=== PATIENT | male | born 1990 | race African-American/Black ===

== ENCOUNTER 2020-03-27 14:51 | Emergency (ER) | payer OTHER ==
[~2020-03-27] VITALS: Ht 175.3 cm; Wt 67.6 kg
[2020-03-27 15:02] VITALS: BP 127/73
--- NOTE | 2020-03-27 15:09 | Emergency Room Report ---
History of Present Illness General Chief Complaint: Skin Rash/Abscess Source: Patient Present Illness HPI 29-year-old male with no symptom past medical history here complaining of a boil on right sided inner thigh/groin x2 days. Patient reports that he has been cancer frequently and he only takes oral antibiotics for it to drain on his own. Rates the pain 3 out of 10 at this time. Denies any fever and chills. Denies penile discharge urinary frequency and urgency. Has not taken medication for symptom relief. Denies chest pain, shortness of breath, headache and dizziness. Has not taken medication for symptom relief Allergies: Coded Allergies: No Known Allergies (Unverified , 03/27/20) COVID-19 Screening Contact w/high risk pt: No Experienced COVID-19 symptoms?: No COVID-19 Testing performed HOUSEKEEPING ASSOCIATE: No Patient History Past Medical History: see triage record Past Surgical History: none Pertinent Family History: none Immunizations: UTD Reviewed Nursing Documentation: PMH: Agreed; PSxH: Agreed Nursing Documentation-PMH Past Medical History: No Stated History Review of Systems All Other Systems: negative except mentioned in HPI Physical Exam Vital Signs Date Time Temp Pulse Resp B/P (MAP) Pulse Ox O2 Delivery O2 Flow Rate FiO2 03/27/20 14:53 99.0 84 19 127/73 (91) 99 Room Air Sp02 EP Interpretation: reviewed, normal General Appearance: no apparent distress, alert, GCS 15, non-toxic Head: normocephalic, atraumatic Eyes: bilateral eye normal inspection, bilateral eye PERRL ENT: hearing grossly normal, normal pharynx, no angioedema, normal voice Neck: full range of motion, supple/symm/no masses Respiratory: chest non-tender, lungs clear, normal breath sounds, speaking full sentences Cardiovascular #1: regular rate, rhythm, no edema Gastrointestinal: normal bowel sounds, non tender, soft, non-distended, no guarding, no rebound Genitourinary: no CVA tenderness, penis normal, scrotum normal Musculoskeletal: back normal, normal range of motion, gait/station normal, non- tender Neurologic: alert, motor strength/tone normal, oriented x3, sensory intact, responsive, speech normal Psychiatric: judgement/insight normal, memory normal, mood/affect normal, no suicidal/homicidal ideation Skin: other - cyst right inguinal Lymphatic: no adenopathy Medical Decision Making PA Attestation All diagnosis and treatment plans were discussed and reviewed by my supervising physician Dr. Polanco Diagnostic Impression: Primary Impression: Groin cyst ER Course 29-year-old male with no symptom past medical history here complaining of a boil on right sided inner thigh/groin x2 days. Patient reports that he has been cancer frequently and he only takes oral antibiotics for it to drain on his own. Rates the pain 3 out of 10 at this time. Denies any fever and chills. Denies penile discharge urinary frequency and urgency. Has not taken medication for symptom relief. Denies chest pain, shortness of breath, headache and dizziness. Has not taken medication for symptom relief Ddx considered but are not limited to : Cellulitis,cyst, superficial infection, abscess Vital signs: are WNL, pt. is afebrile H&PE are most consistent with:groin cyst ORDERS: bactrim DS, Keflex, Ibuprofen ED INTERVENTIONS: toradol DISCHARGE: At this time pt. is stable for d/c to home. Will provide printed patient care instructions, and any necessary prescriptions. Care plan and follow up instructions have been discussed with the patient prior to discharge. Take medication as directed, follow-up with your primary care provider, if worsening symptoms increased pain return to emergency room. Also follow-up with your urologist scrotal ultrasound may be needed. Last Vital Signs Date Time Temp Pulse Resp B/P (MAP) Pulse Ox O2 Delivery O2 Flow Rate FiO2 03/27/20 15:02 99.0 76 19 127/73 99 Room Air Disposition: HOME, SELF-CARE Condition: Stable Scripts Ibuprofen (Ibu) 800 Mg Tablet 800 MG PO TID, #30 TAB Prov: Montse Henry 03/27/20 Trimethoprim/Sulfamethoxazole (Bactrim Ds Tablet) 1 Each Tablet 1 TAB ORAL TWICE A DAY for 7 Days, #14 TAB Prov: Montse Henry 03/27/20 Cephalexin* (KEFLEX*) 500 Mg Capsule 500 MG ORAL EVERY 6 HOURS for 7 Days, #28 CAP Prov: Montse Henry 03/27/20 Patient Instructions: Abscess Additional Instructions: Take medication as directed, follow-up with your primary care provider, if worsening symptoms return to the emergency room Montse Henry Mar 27, 2020 15:09
[2020-03-27] MEDS ORDERED: IBU800 MG PO (15:10)
[2020-03-27] MEDS ORDERED: CEPHALEXIN500 MG ORAL (15:10)
[2020-03-27] MEDS ORDERED: BACTRIM-DS1 EA ORAL (15:10)
[2020-03-27 15:16] VITALS: BP 125/76
== END 2020-03-27 15:15 | disposition home or self-care (01) ==
LOC: EMR 15:10
DX: L72.8 Other follicular cysts of the skin and subcutaneous tissue (principal)
CPT/HCPCS: 99282

== ENCOUNTER 2020-04-22 12:51 | Emergency (ER) | payer OTHER ==
[~2020-04-22] VITALS: Ht 172.7 cm; Wt 65.8 kg
[~2020-04-22 12:51] MED LIST: BACTRIM-DS1 EA ORAL; CEPHALEXIN500 MG ORAL; IBU800 MG PO
--- NOTE | 2020-04-22 13:10 | NUR ---
ED Nurse Note: Patient c/o vomiting started x 45 min; patient is diaphoretic, hyperventilating, continuous having vomiting in waiting room. Assisted patient in wheelchair to room. Emesis bag provided. Pt's is A&Ox4, VSS, on RA, afebrile on triage. Placed on bed and gown; hooked to vehicle monitor technician.
--- NOTE | 2020-04-22 13:21 | Emergency Room Report ---
History of Present Illness General Chief Complaint: Vomiting Source: Patient Present Illness HPI 29-year-old male presents to the emergency department complaining of vomiting since this morning upon awakening as well as diarrhea x1 day. Patient reports 8 out of 10 in severity epigastric abdominal pain and sweating. Patient denies specific fevers or chills. Patient denies blood in the vomit or stool. He reports history of gastritis in the past with similar presentation. Patient does report that he smokes marijuana and last 72 hours but states that he smokes every day and never has any reaction similar to this. She denies taking any other medications denies alcohol use. No other aggravating or relieving factors. Allergies: Coded Allergies: No Known Allergies (Unverified , 03/27/20) COVID-19 Screening Contact w/high risk pt: No Experienced COVID-19 symptoms?: No Patient History Past Medical History: see triage record Past Surgical History: none Pertinent Family History: none Social History: Reports: drug use - THC Reviewed Nursing Documentation: PMH: Agreed; PSxH: Agreed Nursing Documentation-PMH Past Medical History: No History, Except For Hx Gastrointestinal Problems: Yes - Gastritis Review of Systems All Other Systems: negative except mentioned in HPI Physical Exam Sp02 EP Interpretation: reviewed, normal General Appearance: alert, GCS 15, non-toxic, mild distress Head: normocephalic, atraumatic Eyes: bilateral eye normal inspection, bilateral eye PERRL ENT: hearing grossly normal, normal voice Neck: full range of motion Respiratory: lungs clear, normal breath sounds, speaking full sentences Cardiovascular #1: regular rate, rhythm Gastrointestinal: normal bowel sounds, soft, non-distended, no guarding, tenderness - epigastric ttp. Rectal: deferred Genitourinary: normal inspection, no CVA tenderness Musculoskeletal: normal range of motion, gait/station normal, non-tender Neurologic: alert, motor strength/tone normal, oriented x3, sensory intact, responsive, speech normal Psychiatric: judgement/insight normal Skin: no rash, normal color, diaphoresis Medical Decision Making PA Attestation Dr. Christiansen Is my supervising Physician whom patient management has been discussed with. Diagnostic Impression: Primary Impression: Hyperemesis Additional Impression: Cannabinoid hyperemesis syndrome ER Course 29-year-old male presents to the emergency department complaining of vomiting since this morning upon awakening as well as diarrhea x1 day. Patient reports 8 out of 10 in severity epigastric abdominal pain and sweating. Patient denies specific fevers or chills. Patient denies blood in the vomit or stool. He reports history of gastritis in the past with similar presentation. Patient does report that he smokes marijuana and last 72 hours but states that he smokes every day and never has any reaction similar to this. She denies taking any other medications denies alcohol use. No other aggravating or relieving factors. Ddx considered but are not limited to GE, colitis, acute appy, SBO, H.pylori, Gastritis, PNA, pericarditis just to name a few. Vital signs: pt. is afebrile, H&PE are most consistent with Gastritis - no evidence to suggest acute abdomen on physical exam. ORDERS: -None required at this time, the dx is clinical. ED INTERVENTIONS: -Zofran 4mg IV --- Cancelled --- highly suspect cannabinoid induced hyperemesis due to persistent wretching and recent THC use. -Haldol 5mg IVPB --- Vomiting resolved shortly after medication fully administered. - Pepcid 20mg IV - 1 Liter NS -Ativan 1mg IV-- Pt. no longer anxious, Vomiting continues to have been resolved. Pt. reports feeling much better. After above interventions this patient successfully completed oral fluid challenge without nausea or vomiting. He is still a bit drowsy so he is allowed to rest until he is steady on his feet. Pt. reports he will call a lyft as he cant get a hold of his previously anticipated ride. -I do not identify an emergent condition at this time. With current presentation , pt. is stable for close outpatient follow up and conservative treatment. D/ w pt. to return promptly to ED with worsening or new symptoms.- Pt. (and or responsible republican) verbalizes' understanding and agreement with proposed treatment plan.proposed treatment plan. DISCHARGE: At this time pt. is stable for d/c to home. Will provide printed patient care instructions, and any necessary prescriptions. Care plan and follow up instructions have been discussed with the patient prior to discharge. Labs Test 04/22/20 13:10 White Blood Count 10.4 K/UL (4.8-10.8) Red Blood Count 5.21 M/UL (4.70-6.10) Hemoglobin 16.9 G/DL (14.2-18.0) Hematocrit 51.2 % (42.0-52.0) Mean Corpuscular Volume 98 FL (80-99) Mean Corpuscular Hemoglobin 32.5 PG (27.0-31.0) Mean Corpuscular Hemoglobin Concent 33.1 G/DL (32.0-36.0) Red Cell Distribution Width 11.3 % (11.6-14.8) Platelet Count 172 K/UL (150-450) Mean Platelet Volume 7.2 FL (6.5-10.1) Neutrophils (%) (Auto) 69.3 % (45.0-75.0) Lymphocytes (%) (Auto) 19.9 % (20.0-45.0) Monocytes (%) (Auto) 8.6 % (1.0-10.0) Eosinophils (%) (Auto) 0.4 % (0.0-3.0) Basophils (%) (Auto) 1.9 % (0.0-2.0) Sodium Level 140 MMOL/L (136-145) Potassium Level 3.5 MMOL/L (3.5-5.1) Chloride Level 102 MMOL/L (98-107) Carbon Dioxide Level 18 MMOL/L (21-32) Anion Gap 20 mmol/L (5-15) Blood Urea Nitrogen 13 mg/dL (7-18) Creatinine 1.4 MG/DL (0.55-1.30) Estimat Glomerular Filtration Rate > 60 mL/min (>60) Glucose Level 141 MG/DL (74-106) Calcium Level 10.0 MG/DL (8.5-10.1) Total Bilirubin 0.7 MG/DL (0.2-1.0) Aspartate Amino Transf (AST/SGOT) 35 U/L (15-37) Alanine Aminotransferase (ALT/SGPT) 25 U/L (12-78) Alkaline Phosphatase 79 U/L (46-116) Total Protein 9.0 G/DL (6.4-8.2) Albumin 4.7 G/DL (3.4-5.0) Globulin 4.3 g/dL Albumin/Globulin Ratio 1.1 (1.0-2.7) Lipase 97 U/L (73-393) EKG Diagnostic Results EP Interpretation: Dr. christiansen Rate: normal - [address] Segments: no acute changes ASA given to the pt in ED: No PA Scribe Text This Interpretation was scribed by RAVI Bridges. Disposition: HOME, SELF-CARE Condition: Stable Scripts Famotidine* (Pepcid 20mg tablet*) 20 Mg Tablet 20 MG ORAL TWICE A DAY for 4 Days, #8 TAB 0 Refills Prov: Jacqueline Bridges 04/22/20 Capsaicin (CAPSAICIN) 42.5 Gm Cream..g. 1 APPLIC TP QID, #42.5 GM Prov: Jacqueline Bridges 04/22/20 Referrals: [facility] Patient Instructions: Nausea and Vomiting, Adult Additional Instructions: Take medications as directed. Apply cream to upper stomach for persistent Vomiting related to THC the medication will burn slightly but this is normal. Follow up with a Primary Care Provider in 3-5 days, even if your symptoms have resolved. --Please review list of primary care clinics, if you do not already have a primary care provider Return sooner to ED if new symptoms occur, or current symptoms become worse. - Please note that this Emergency Department Report was dictated using [employer] sticker technology software, occasionally this can lead to erroneous entry secondary to interpretation by the dictation equipment. Jacqueline Bridges Apr 22, 2020 13:21
[2020-04-22] MEDS ORDERED: Haloperidol Lactate 5 MG in D5W 55 ML IVPB ONE (13:30)
[2020-04-22 13:39] VITALS: BP 132/70
[2020-04-22] MEDS ORDERED: LORazepam Inj 2mg/ml 1ml IV ONE (13:45)
[2020-04-22 13:46] LABS: BASOPHILS % (AUTO) 1.9 % (0.0-2.0); EOSINOPHILS % (AUTO) 0.4 % (0.0-3.0); HEMATOCRIT 51.2 % (42.0-52.0); HEMOGLOBIN 16.9 G/DL (14.2-18.0); LYMPHOCYTES % (AUTO) 19.9 % (20.0-45.0); MEAN CORPUSCULAR VOLUME 98 FL (80-99); MONOCYTES % (AUTO) 8.6 % (1.0-10.0); NEUTROPHILS % (AUTO) 69.3 % (45.0-75.0); PLATELET COUNT 172 K/UL (150-450); RED BLOOD COUNT 5.21 M/UL (4.70-6.10); RED CELL DISTRIBUTION WIDTH 11.3 % (11.6-14.8); WHITE BLOOD COUNT 10.4 K/UL (4.8-10.8)
[2020-04-22 13:56] LABS: ANION GAP 20 mmol/L (5-15); BLOOD UREA NITROGEN 13 mg/dL (7-18); CARBON DIOXIDE 18 MMOL/L (21-32); CHLORIDE 102 MMOL/L (98-107); CREATININE 1.4 MG/DL (0.55-1.30); POTASSIUM 3.5 MMOL/L (3.5-5.1); SODIUM 140 MMOL/L (136-145)
[2020-04-22 14:12] LABS: ALANINE AMINOTRANSFERASE 25 U/L (12-78); ALBUMIN 4.7 G/DL (3.4-5.0); ALBUMIN/GLOBULIN RATIO 1.1 (1.0-2.7); ALKALINE PHOSPHATASE 79 U/L (46-116); ASPARTATE AMINO TRANSFERASE 35 U/L (15-37); BILIRUBIN,TOTAL 0.7 MG/DL (0.2-1.0)
[2020-04-22] MEDS ORDERED: FAMOTIDINE20 MG ORAL (15:09)
[2020-04-22] MEDS ORDERED: CAPSAICIN42.5 GM TP (15:09)
[2020-04-22 15:48] VITALS: BP 134/72
--- NOTE | 2020-04-22 15:48 | NUR ---
ER DISCHARGE NOTE: Patient is cleared to be discharged per ERPA, pt is aox4, on room air, with stable vital signs. pt was given dc and prescription instructions, pt was able to verbalize understanding, pt id band and iv site removed without complications. pt is able to ambulate with steady gait. pt took all belongings.
== END 2020-04-22 15:48 | disposition home or self-care (01) ==
LOC: EMR 13:40
DX: R11.10 Vomiting, unspecified (principal); F12.988 Cannabis use, unspecified with other cannabis-induced disorder
CPT/HCPCS: 36415; 80053; 83690; 85025; 93005; 96361; 96374; 96375; J1630; J7030; S0028; Z7502; 99284

== ENCOUNTER 2020-06-11 10:42 | Emergency (ER) | payer OTHER ==
[~2020-06-11] VITALS: Ht 175.3 cm; Wt 68.0 kg
[~2020-06-11 10:42] MED LIST changes: +CAPSAICIN42.5 GM TP; +FAMOTIDINE20 MG ORAL
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
[2020-06-11 11:19] VITALS: BP 159/64
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
[2020-06-11] MEDS ORDERED: HYDROcodone/Acetamin 5/325 tab ORAL ONE (11:30)
--- NOTE | 2020-06-11 11:40 | NUR ---
ED Nurse Note:x-ray was done
[2020-06-11] MEDS ORDERED: Ketorolac 60mg Inj IM ONE (12:30)
[2020-06-11 13:00] VITALS: BP 143/65
[2020-06-11 13:05] VITALS: BP 159/64
--- NOTE | 2020-06-11 13:05 | NUR ---
ED Nurse Note:pt. had splint reapplied on his left arm, pain meds given Pt cleared by health care Provider for discharge. DC instructions/prescription was given and explained to pt and verbalized understanding of teachings. All medical deviecs such as ID band removed. Pt is AAO x4, ambulatory and left with all personal belongings.
[2020-06-11] MEDS ORDERED: PERCOCET 5-3251 EACH ORAL ×2 (13:59→14:04)
[2020-06-11] MEDS ORDERED: COLACE100 MG ORAL (14:04)
--- NOTE | 2020-06-11 20:47 | Diagnostic Imaging Report ---
Clinical Indication:Wrist pain and swelling Technique: 3 views of the left and Comparison: None Findings: A surgical screw is seen reducing a scaphoid fracture. Multiple K wires are seen within the scaphoid, lunate, triquetrum, and distal radius. Bones appear well aligned. Overlying splint somewhat obscures bony detail. Impression: Postoperative changes, as described. No definite acute abnormality
== END 2020-06-11 13:10 | disposition home or self-care (01) ==
LOC: EMR 12:00
DX: G89.18 Other acute postprocedural pain (principal); S62.002D Unspecified fracture of navicular [scaphoid] bone of left wrist, subsequent encounter for fracture with routine healing; X58.XXXD Exposure to other specified factors, subsequent encounter
CPT/HCPCS: 29125; 73130; 96372; Z7502; 99283